=== PATIENT | male | born 1985 | race Caucasian/White ===

== ENCOUNTER 2025-06-30 05:53 | Day surgery (SDC) | payer OTHER ==
[~2025-06-30] VITALS: Ht 175.3 cm; Wt 78.3 kg
[~2025-06-30 05:53] MED LIST: ACET1TAB55 PO; ASPI-737 PO; CELE1CAP4 PO
[2025-06-30] MEDS ORDERED: LIDOCAINE 2% 100 MG/5 ML SDV (FOR ANES.) As Ordered ONE (06:50)
[2025-06-30] MEDS ORDERED: ONDANSETRON 4MG 2ML VIAL As Ordered ONE (06:52)
[2025-06-30] MEDS ORDERED: dexAMETHasone 4 MG/ML 1 ML VIAL As Ordered ONE (06:52)
[2025-06-30] MEDS ORDERED: KETOROLAC 30 MG/ML 1 ML VIAL As Ordered ONE (06:52)
[2025-06-30] MEDS ORDERED: LR 1,000 ML IV SCH (07:10)
[2025-06-30] MEDS: MIDAZOLAM INJ 2 MG/2 ML VIAL IV PRN (07:22)
[2025-06-30] MEDS: ROPIvacaine 0.5% 30ML VIAL PN ONE (07:25)
[2025-06-30] MEDS: dexAMETHasone 10 MG/1 ML VIAL PRES.FREE PN ONE (07:25)
[2025-06-30] MEDS: LIDOCAINE 1% SDV 5 ML VIAL PN ONE (07:25)
[2025-06-30] MEDS: ceFAZolin SOD 2 GM IV ONCE IV ONE (07:40)
[2025-06-30] MEDS: TRANEXAMIC ACID 100 MG/ML 10ML VIAL As Ordered ONE (07:55)
[2025-06-30] MEDS ORDERED: GLYCOPYRROLATE INJ 0.2 MG/ML 2 ML VIAL As Ordered ONE (08:11)
[2025-06-30] MEDS: VANCOMYCIN 1000MG/20ML VIAL As Ordered ONE (09:51)
[2025-06-30] MEDS ORDERED: ONDANSETRON 4MG 2ML VIAL IV PRN (10:30)
[2025-06-30] MEDS ORDERED: MORPHINE 4 MG/ML 1 ML VIAL IV PRN (10:30)
[2025-06-30 11:15] VITALS: BP 119/65; TEMP 97.9; O2SAT 97
== END 2025-06-30 11:47 | disposition home or self-care (01) ==
LOC: M SDC 05:53
PROVIDERS: ATTEND Student in an Organized Health Care Education/Training Program
DX: S93.325A Dislocation of tarsometatarsal joint of left foot, initial encounter (principal); S92.312A Displaced fracture of first metatarsal bone, left foot, initial encounter for closed fracture; S92.322A Displaced fracture of second metatarsal bone, left foot, initial encounter for closed fracture; S92.242A Displaced fracture of medial cuneiform of left foot, initial encounter for closed fracture; S92.232A Displaced fracture of intermediate cuneiform of left foot, initial encounter for closed fracture; X50.9XXA Other and unspecified overexertion or strenuous movements or postures, initial encounter; Y92.9 Unspecified place or not applicable; Y93.62 Activity, american flag or touch football; F17.220 Nicotine dependence, chewing tobacco, uncomplicated; Z79.899 Other long term (current) drug therapy
CPT/HCPCS: 28730; 76000; C1713; C1769; J0688; J1100; J1596; J1885; J2250; J2405; J2795; J3010; J3373

== ENCOUNTER 2025-08-02 10:20 | Day surgery (SDC) | payer OTHER ==
[~2025-08-02] VITALS: Ht 175.3 cm; Wt 78.0 kg
[2025-08-02] MEDS ORDERED: LR 1,000 ML IV SCH (11:00)
[2025-08-02] MEDS ORDERED: ONDANSETRON 4MG/2ML VIAL As Ordered ONE (12:29)
[2025-08-02] MEDS ORDERED: KETOROLAC 30 MG/ML 1 ML VIAL As Ordered ONE (12:29)
[2025-08-02] MEDS ORDERED: MIDAZOLAM INJ 2 MG/2 ML VIAL As Ordered ONE (12:29)
[2025-08-02] MEDS ORDERED: dexAMETHasone 4 MG/ML 1 ML VIAL As Ordered ONE (12:29)
[2025-08-02] MEDS ORDERED: LIDOCAINE 2% 100 MG/5 ML SDV (FOR ANES.) As Ordered ONE (12:29)
[2025-08-02] MEDS ORDERED: dexmedeTOMIDine (4 MCG/ML) 200 MCG/50 ML BTL As Ordered ONE (12:34)
[2025-08-02] MEDS: TRANEXAMIC ACID 100 MG/ML 10ML VIAL As Ordered ONE (12:48)
[2025-08-02] MEDS ORDERED: ACETAMINOPHEN 1000MG/100ML IV BAG As Ordered ONE (13:19)
[2025-08-02] MEDS: TRANEXAMIC ACID 100 MG/ML 10ML VIAL IV ONE (13:25)
[2025-08-02] MEDS: ceFAZolin SOD 2 GM IV ONCE IV ONE (13:28)
[2025-08-02] MEDS ORDERED: HYDROmorphone HCL 2 MG/ML 1 ML VIAL As Ordered ONE (13:41)
[2025-08-02] MEDS: VANCOMYCIN 1000MG/20ML VIAL As Ordered ONE (14:02)
[2025-08-02] MEDS ORDERED: MORPHINE 4 MG/ML 1 ML VIAL IV PRN (14:05)
[2025-08-02] MEDS: HYDROMORPHONE HCL 0.5 MG/0.5 ML SYRINGE IV PRN (14:33)
[2025-08-02 15:46] VITALS: BP 128/65; TEMP 94.7; O2SAT 98
== END 2025-08-02 15:50 | disposition home or self-care (01) ==
LOC: M SDC 10:20
PROVIDERS: ATTEND Student in an Organized Health Care Education/Training Program
DX: T81.89XA Other complications of procedures, not elsewhere classified, initial encounter (principal); Y83.8 Other surgical procedures as the cause of abnormal reaction of the patient, or of later complication, without mention of misadventure at the time of the procedure; Z88.0 Allergy status to penicillin
CPT/HCPCS: 11422; 87070; 87075; 87077; 87186; 87205; J0131; J0688; J1100; J1171; J1885; J2250; J2405; J3010; J3373

== ENCOUNTER → 2025-09-06 | Outpatient (CLI) | payer OTHER ==
[2025-09-06 16:22] LABS: PLATELET COUNT, AUTOMATED 322 10^3/uL (150-450)
== END ==
LOC: M RAD 15:03
DX: T81.41XD Infection following a procedure, superficial incisional surgical site, subsequent encounter (principal); M81.8 Other osteoporosis without current pathological fracture; R60.0 Localized edema; Y79.2 Prosthetic and other implants, materials and accessory orthopedic devices associated with adverse incidents